=== PATIENT | male | born 1980 | race African-American/Black ===

== ENCOUNTER 2022-05-23 04:55 | Emergency (ER) | payer SELFPAY | END 2022-05-23 05:31 | disposition home or self-care (01) | LOC: BURERS 04:55 | DX: L02.31 Cutaneous abscess of buttock (principal) | CPT/HCPCS: 99282 ==

== ENCOUNTER 2023-12-15 14:46 | Emergency (ER) | payer MEDICARE, MEDICAID | END 2023-12-15 15:35 | disposition home or self-care (01) | LOC: BURERS 14:46 | DX: R05.9 Cough, unspecified (principal); I10 Essential (primary) hypertension; E11.40 Type 2 diabetes mellitus with diabetic neuropathy, unspecified; E66.9 Obesity, unspecified | CPT/HCPCS: 71046 ==